=== PATIENT | female | born 1985 | race Caucasian/White ===

== ENCOUNTER 2018-02-14 09:20 | Emergency (ER) | payer BC, OTHER ==
[2018-02-14 09:28] VITALS: BP 103/70; PULSE 88; TEMP 98.3; BMI 21.6
[2018-02-14] MEDS ORDERED: SODIUM CHLORIDE 1,000 ML IV STA ×2 (09:39→09:40)
[2018-02-14 09:49] LABS: PH,URINE 6.5 (4.5-8); URINE APPEARANCE Slightly; URINE BILIRUBIN Negative (NEGATIVE); URINE COLOR Amber; URINE GLUCOSE (UA) Negative (NEGATIVE); URINE KETONE Trace (NEGATIVE); URINE LEUK ESTERASE 1+ (NEGATIVE); URINE NITRITE Negative (NEGATIVE); URINE PROTEIN Negative (NEGATIVE); URINE UROBILINOGEN 0.2 (0.2-1.0)
--- NOTE | 2018-02-14 09:52 | PDOC ---
History of Present Illness - General Chief Complaint: Lightheaded Stated Complaint: 9 wks , DIZZY Time Seen by Provider: 02/14/18 09:23 History Source: Patient Exam Limitations: No Limitations - History of Present Illness Initial Comments: 02/14/18 09:46 32 yo female (currently 9 weeks ) presents to the ED for 3 days of intermittent light headedness, generalized weakness and palpitations. Pt called her OB (Dr. Garcia) who would like her seen, have an ekg and have her oxygenation status checked due to the symptoms. Pt admits to giving at 36 weeks last and will be followed by high lead yarder. Pt states symptoms occur mainly while ambulating and only last 1 min, 1 episode Sat and 1 . Pt taking diclegis for morning sickness, denies N/V. Also admits to low grade fever 3 days ago, denies any current symptoms, fevers, chills, Cp, SOB, vaginal bleeding or spotting, abdominal pain or changes in urinary or bowel habits. Past History - Past Medical History Allergies/Adverse Reactions: Allergies Allergy/AdvReac Type Severity Reaction Status Date / Time No Known Allergies Allergy Verified 02/14/18 09:23 Home Medications: Ambulatory Orders Cephalexin [Keflex] 500 mg PO BID 7 Days #14 capsule 02/14/18 Doxylamine Succinate/Vit B6 [Diclegis Dr 10-10 mg Tablet] 1 each PO HS PRN 02/14 COPD: No Other medical history: MORNING SICKNESS - Suicide/Smoking/Psychosocial Hx Smoking History: Never smoked Have you smoked in the past 12 months: No Number of Cigarettes Smoked Daily: 0 Information on smoking cessation initiated: No Hx Alcohol Use: No Substance Use Type: None Review of Systems - Review of Systems Constitutional: No: Chills, Fever (present 3 day ago, low grade) Respiratory: No: Shortness of Breath Cardiac (ROS): Yes: Lightheadedness, Palpitations. No: Chest Pain, Syncope ABD/GI: No: Constipated, Diarrhea, Nausea, Vomiting : Yes: Other (no vaginal bleeding). No: Burning, Dysuria, Discharge, Hematuria Musculoskeletal: No: Back Pain Neurological: Yes: Weakness (generalized) *Physical Exam - Vital Signs Last Vital Signs Temp Pulse Resp BP Pulse Ox 98.3 F 88 16 103/70 100 02/14/18 09:20 02/14/18 09:20 02/14/18 09:20 02/14/18 09:20 02/14/18 09:20 - Physical Exam General Appearance: Yes: Nourished, Appropriately Dressed. No: Apparent Distress HEENT: positive: EOMI Respiratory/Chest: positive: Lungs Clear, Normal Breath Sounds Cardiovascular: positive: Regular Rhythm, Regular Rate, S1, S2. negative: Edema , JVD, Murmur Vascular Pulses: Dorsalis-Pedis (R): 4+, Doralis-Pedis (L): 4+ Female Pelvic Exam: positive: other (denies discharge or bleeding) Gastrointestinal/Abdominal: positive: Normal Bowel Sounds, Flat, Soft, Tenderness (minor tenderness to R and L LQ). negative: Pulsatile Mass, Protuberent, Guarding, Rebound Musculoskeletal: negative: CVA Tenderness Extremity: positive: Normal Capillary Refill Integumentary: positive: Normal Color, Dry, Warm. negative: Cyanotic, Pale Neurologic: positive: Fully Oriented, Alert, Normal Mood/Affect ED Treatment Course - LABORATORY CBC & Chemistry Diagram: 02/14/18 09:58 02/14/18 09:58 Medical Decision Making - Medical Decision Making 02/14/18 11:03 32 yo 9 week female pmh of UTI presents with lightheadedness and low grade fever 3 days ago. Past UTI presented similarly. Vitals normal including 100% O2 Blood work neg for anemia, infection or electrolyte abnormality UTI on urine. Urine Culture sent 500mg BID Cephalexin sent to pharmacy Patient resting comfortably, got 2L fluids and no current symptoms or complaints. Will discharge with follow up with PCP 02/14/18 11:[address] Garcia's nurse who is aware of the findings and set an appointment for next at 5pm *DC/Admit/Observation/Transfer Diagnosis at time of Disposition: UTI (urinary tract infection) Qualifiers: Urinary tract infection type: site unspecified Hematuria presence: without hematuria Qualified Code(s): N39.0 - Urinary tract infection, site not specified - Discharge Dispostion Condition at time of disposition: Stable Decision to Admit order: No - Prescriptions Prescriptions: Cephalexin [Keflex] 500 mg PO BID 7 Days #14 capsule - Referrals Referrals: Luana Garcia [Other] - Patient Instructions Printed Discharge Instructions: DI for Urinary Tract Infection (UTI) Additional Instructions: Please follow up with your appointment next at 5pm with your OB Dr. Garcia A Urinary Tract Infection was found and Cephalexin 500mg 2 times a day by mouth was sent to your pharmacy. Please return to the Emergency Department for new or worsening symptoms including but not limited to: blood in the urine, excessive abdominal or back pain, high fevers or feels of passing out, Thank you. - Post Discharge Activity
--- NOTE | 2018-02-14 09:59 | PDOC ---
Attending Attestation - Resident Resident Name: Wolf Dong - ED Attending Attestation I have performed the following: I have examined & evaluated the patient, The case was reviewed & discussed with the resident, I agree w/resident's findings & plan, Exceptions are as noted - HPI HPI: 02/14/18 10:05 32 year old female c/ no pmh p/w lightheadedness x 3 days. The patient is 9 weeks . She reportedly has hx of hyperemesis gravidarum. Is currently taking medications for nausea. Reports overall that her appetite is decreased but still trying to tolerate PO. No fevers, chills, abdominal pain, dysuria, or vaginal bleeding. Pt feels lightheaded on standing up or sitting up quickly. When exerting herself, she feels palpitations but denies chest pain or SOB. Pt called her SOFTWARE INTEGRATION DEVELOPER who advised pt to go to the ER. - Physicial Exam PE: 02/14/18 10:08 GENERAL: Awake, alert, and fully oriented, in no acute distress HEAD: No signs of trauma EYES: EOMI, sclera anicteric, conjunctiva clear ENT: Auricles normal inspection, hearing grossly normal, nares patent, dry mucous membranes. NECK: Normal ROM, supple LUNGS: Breath sounds equal, clear to auscultation bilaterally. No wheezes, and no crackles HEART: Regular rate and rhythm, normal S1 and S2, no murmurs, rubs or gallops ABDOMEN: Soft, nontender. No guarding, no rebound. No masses EXTREMITIES: Normal range of motion, no edema. No clubbing or cyanosis. No cords, erythema, or tenderness NEUROLOGICAL: Cranial nerves II through XII grossly intact. Normal speech, normal gait SKIN: Warm, Dry, normal turgor, no rashes or lesions noted. - Medical Decision Making 02/14/18 10:09 Vital Signs Temp Pulse Resp BP Pulse Ox 98.3 F 88 16 103/70 100 02/14/18 09:20 02/14/18 09:20 02/14/18 09:20 02/14/18 09:20 02/14/18 09:20 I suspect that the patient's symptoms are secondary to dehydration, and less likely from other etiologies i.e. cardiac, metabolic, infectious. ECG is normal and reassuring. Will check labs for metabolic disarray. UA to r/o infection. Give IVF and reassess. 02/14/18 10:46 CBC, BMP 02/14/18 09:58 10 09:58 BMI Body Mass Index (BMI) 21.6 CMP Sodium 134 mmol/L (136-145) L 02/14/18 09:58 Potassium 4.0 mmol/L (3.5-5.1) 02/14/18 09:58 Chloride 105 mmol/L (98-107) 02/14/18 09:58 Carbon Dioxide 24 mmol/L (22-28) 02/14/18 09:58 Anion Gap 5 MMOL/L (8-16) L 02/14/18 09:58 BUN 7 mg/dl (7-18) 02/14/18 09:58 Creatinine 0.6 mg/dl (0.6-1.3) 02/14/18 09:58 Creat Clearance w eGFR > 60 (>60) 02/14/18 09:58 Random Glucose 75 mg/dl (74-106) 02/14/18 09:58 Calcium 9.1 mg/dl (8.4-10.2) 02/14/18 09:58 Magnesium 1.8 mg/dL (1.8-2.4) 02/14/18 09:58 Total Bilirubin 0.5 mg/dl (0.2-1.0) 02/14/18 09:58 AST 18 U/L (10-42) 02/14/18 09:58 ALT 15 U/L (10-40) 02/14/18 09:58 Alkaline Phosphatase 51 U/L (32-92) 02/14/18 09:58 Creatine Kinase 60 IU/L (26-192) 02/14/18 09:58 Total Protein 6.7 g/dl (6.4-8.3) 02/14/18 09:58 Albumin 3.8 g/dl (3.5-5.0) 02/14/18 09:58 Urine Test Results Urine Color [place] 02/14/18 09:41 Urine Appearance Slightly 02/14/18 09:41 Urine pH 6.5 (4.5-8) 02/14/18 09:41 Ur Specific Ledger 1.025 (1.010-1.035) 02/14/18 09:41 Urine Protein Negative (NEGATIVE) 02/14/18 09:41 Urine Glucose (UA) Negative (NEGATIVE) 02/14/18 09:41 Urine Ketones Trace (NEGATIVE) 02/14/18 09:41 Urine Blood Trace-intact (NEGATIVE) H 02/14/18 09:41 Urine Nitrite Negative (NEGATIVE) 02/14/18 09:41 Urine Bilirubin Negative (NEGATIVE) 02/14/18 09:41 Ur Leukocyte Esterase 1+ (NEGATIVE) H 02/14/18 09:41 Urine RBC 5-10 /hpf (0-3) 02/14/18 09:41 Urine WBC 20-40 (0-5) 02/14/18 09:41 Ur Epithelial Cells 4+ /HPF 02/14/18 09:41 Urine Bacteria 4+ /hpf (NEGATIVE) 02/14/18 09:41 Labs are unremarkable. However, pt noted with 20-40 WBC in the urine. Given that she is , will treat with keflex. Urine culture ordered. 2nd liter of IVF ordered. I suspect that the combination of poor appetite and UTI is contributing to her dehydration. If the trop is negative, and the patient feels better, she can be discharged home with ob followup. Heart Score/ECG Review #1 ECG reviewed & interpreted by me at: 10:00 02/14/18 09:58 NSR 69, no std/krystal, normal axis, normal intervals, no brugada, no HOCM, no WPW, QTC 394 msec
[2018-02-14 10:10] LABS: EPI CELLS 4+ /HPF; URINE BACTERIA 4+ /hpf (NEGATIVE); URINE WBC 20-40 (0-5)
[2018-02-14 10:16] LABS: EOS % 0.5 % (0-4.5); HEMATOCRIT 36.6 % (32.4-45.2); HEMOGLOBIN 12.1 GM/dl (10.7-15.3); LYMPH % 20.2 % (8-40); MCH 30.9 pg (25.7-33.7); MEAN CELL VOLUME 93.5 fl (80-96); MONO % 6.4 % (3.8-10.2); NEUT % 72.6 % (42.8-82.8); PLATELET COUNT 212 K/MM3 (134-434); RBC 3.92 M/mm3 (3.60-5.2); RDW 11.5 % (11.6-15.6); WHITE BLOOD COUNT 8.9 K/mm3 (4.0-10.8)
[2018-02-14 10:33] LABS: ALBUMIN 3.8 g/dl (3.5-5.0); ALK PHOS 51 U/L (32-92); ANION GAP 5 MMOL/L (8-16); BILIRUBIN,TOTAL 0.5 mg/dl (0.2-1.0); BLOOD UREA NITROGEN 7 mg/dl (7-18); CALCIUM 9.1 mg/dl (8.4-10.2); CHLORIDE 105 mmol/L (98-107); CO2 24 mmol/L (22-28); CREATININE 0.6 mg/dl (0.6-1.3); GLUCOSE,RANDOM 75 mg/dl (74-106); MAGNESIUM 1.8 mg/dL (1.8-2.4); SGOT/AST 18 U/L (10-42); SGPT/ALT 15 U/L (10-40); SODIUM 134 mmol/L (136-145); TOT PROT 6.7 g/dl (6.4-8.3)
[2018-02-14] MEDS ORDERED: CEPHALEXIN 250 MG/5 ML ORAL SUSPENSION PO ONE (10:51)
[2018-02-14] MEDS ORDERED: CEPHALEXIN MONOHYDRATE 500 MG CAPSULE (UD) ONE (11:32)
[2018-02-14] MEDS ORDERED: CEPHALEXIN MONOHYDRATE 500 MG CAPSULE (UD) PO ONE (11:37)
--- NOTE | 2018-02-15 10:33 | EKG ---
Test Reason : Blood Pressure : / mmHG Vent. Rate : 069 BPM Atrial Rate : 069 BPM P-R Int : 142 ms QRS Dur : 074 ms QT Int : 368 ms P-R-T Axes : 054 086 055 degrees QTc Int : 394 ms NORMAL SINUS RHYTHM NORMAL ECG NO PREVIOUS ECGS AVAILABLE Confirmed by CELINE MCKEON MD ([id number]) on 02/15/2018 10:33:18 AM Referred By: ARIANNE DEXTER Confirmed By:CELINE MCKEON MD
== END 2018-02-14 12:03 | disposition home or self-care (01) ==
LOC: FER 09:20
PROC: 3E0337Z Introduction of Electrolytic and Water Balance Substance into Peripheral Vein, Percutaneous Approach (ICD-10-PCS; principal; 2018-02-14)
DX: R42 Dizziness and giddiness (principal); O26.891 Other specified pregnancy related conditions, first trimester; Z3A.09 9 weeks gestation of pregnancy; N39.0 Urinary tract infection, site not specified
CPT/HCPCS: 36415; 80053; 81003; 81015; 82550; 83735; 84484; 85025; 87086; 93005; 99285-25; J7030

== ENCOUNTER 2018-11-07 08:21 | Inpatient (IN) | payer OTHER ==
--- NOTE | 2018-11-07 08:25 | PDOC ---
History of Present Illness - General Chief Complaint: Weakness Stated Complaint: FEVER WEAKNESS Time Seen by Provider: 11/07/18 08:23 - History of Present Illness Initial Comments: 11/07/18 08:42 33yo female with no pmhx other than a spontaneous vaginal delivery 7 weeks ago at [facility] presents to the ED with a fever of 2 days. Pt states she was being treated last week with flagyl for BV and then switched on saturday to dicloxacillin. Pt has been taking the dicloxacillin x 2 days and still persistent fevers. Pt states she was switched because of mastitis of the R breast. No discharge other than breast milk from the R breast, but redness and pain. Pt states she pumped this am and only 1/2 an ounce was able to be pumped vs 3ounces to L breast. Pt with R lateral breast redness and ttp. Pt with palpable induration and poss abscess in the breast. Pt arrives febrile. Pt took tylenol around 7am. Pt took motrin at 4am. Pt had an appt with her BUSINESS DEVELOPMENT PROFESSIONAL today, but was feeling weak and dizzy. Pt states decreased po intake yesterday secondary to nausea. No vomiting or diarrhea. Pt denies vaginal bleeding, discharge, itching or pain. Pt denies abd pain. No cp/sob. No cough. Pt states she had an IUD placed last by her ARC AIR OPERATOR. Pmhx: denies Pshx: denies Allergies: nkda Past History - Past Medical History Allergies/Adverse Reactions: Allergies Allergy/AdvReac Type Severity Reaction Status Date / Time No Known Allergies Allergy Verified 11/07/18 08:23 Home Medications: Ambulatory Orders Acetaminophen [Tylenol] 650 mg PO PRN 11/07/18 Dicloxacillin Sodium 500 mg PO QID 11/07/18 Ibuprofen [Motrin -] 400 mg PO PRN 11/07/18 COPD: No - Reproductive History (#): 2 Para: 1 Therapeutic (s) & number: No - Suicide/Smoking/Psychosocial Hx Smoking History: Never smoked Have you smoked in the past 12 months: No Number of Cigarettes Smoked Daily: 0 Hx Alcohol Use: No Substance Use Type: None Review of Systems - Review of Systems Able to Perform ROS?: Yes Is the patient limited Occitan proficient: No Constitutional: Yes: Fever, Weakness. No: Chills HEENTM: No: Nose Pain, Nose Congestion, Throat Pain Respiratory: No: Cough, Shortness of Breath, Wheezing, Productive cough Cardiac (ROS): No: Chest Pain ABD/GI: Yes: Nausea, Poor Appetite. No: Diarrhea, Vomiting, Abdominal cramping : No: Burning, Dysuria Musculoskeletal: No: Back Pain Integumentary: Yes: Erythema, Other (R breast swelling, redness, pain) Neurological: Yes: Headache. No: Numbness, Paresthesia, Unsteady Gait, Ataxia All Other Systems: Reviewed and Negative *Physical Exam - Vital Signs 11/07/18 08:54 Selected Entries 11/07/18 08:22 Temperature 101.4 F H Pulse Rate 96 H Respiratory 18 Rate Respiratory Non-Labored Effort Blood Pressure 114/74 Blood Pressure 87 Mean O2 Sat by Pulse 96 Oximetry (%) Weight 55.338 kg - Physical Exam General Appearance: Yes: Nourished, Appropriately Dressed, Mild Distress HEENT: positive: EOMI, GABRIELE, Normal ENT Inspection, Pharynx Normal Neck: positive: Supple Respiratory/Chest: positive: Lungs Clear, Normal Breath Sounds, Other (R breast with lateral redness, swelling, induration and palpable mass underneath, poss abscess). negative: Respiratory Distress Cardiovascular: positive: Regular Rhythm, Regular Rate, S1, S2 Female Pelvic Exam: positive: normal external exam, cervical os closed, normal adnexa, other (IUD string visualized, no adnexal, cmt, or uterine ttp). negative: CMT, discharge, adnexal tenderness, vaginal bleeding Gastrointestinal/Abdominal: positive: Normal Bowel Sounds, Flat, Soft. negative : Guarding, Rebound, Tenderness Musculoskeletal: positive: Normal Inspection. negative: CVA Tenderness Extremity: positive: Normal Capillary Refill, Normal Inspection, Normal Range of Motion. negative: Calf Tenderness Integumentary: positive: Erythema (R lateral breast ), Other (hot to tough) Neurologic: positive: specialist physicians II-XII NML intact, Fully Oriented, Alert, Motor Strength 5/5 ED Treatment Course - LABORATORY CBC & Chemistry Diagram: 11/07/18 09:08 11/07/18 09:08 Medical Decision Making - Medical Decision Making 11/07/18 08:59 a/p: 33yo female with fever x 2 days -suspect worsening mastitis that failed outpt therapy -pt is breast feeding, has been pumping -pt was on flagyl for a week and then changed to dicloxacillin -will send labs, cultures -will order ultrasound of breast to eval for poss breast abscess -only milk production from nipple, breast is ttp -will start iv abx -will give ivf hydration, nausea control, toradol for fever 11/07/18 09:39 cxr clear 11/07/18 10:41 no breast abscess 11/07/18 10:56 pt with mastitis that failed outpt abx microblog sent to [facility] 11/07/18 11:[address] Trinh or Dr. Chris at the [place] [facility] to update them and discuss the case [phone] 11/07/18 11:[address] Medina who agrees with plan and recommends follow up with them upon dc from the hospital 11/07/18 11:29 case discussed with Rashmi Ludwig who accepts pt to service *DC/Admit/Observation/Transfer Diagnosis at time of Disposition: Mastitis - Discharge Dispostion Condition at time of disposition: Fair Decision to Admit order: Yes - Referrals Referrals: Karan German MD [Primary Care Provider] - - Patient Instructions - Post Discharge Activity
[2018-11-07] MEDS ORDERED: FAMOTIDINE 20 MG/50 ML IVPB 20 MG/50 ML MG IVPB ONE ×2 (08:39→09:23)
[2018-11-07] MEDS ORDERED: KETOROLAC TROMETHAMINE 15 MG/ML VIAL IVPUSH ONE (08:39)
[2018-11-07] MEDS ORDERED: SODIUM CHLORIDE 0.9% 1000 ML INFUS.BAG IV ONE ×2 (08:39→10:17)
[2018-11-07] MEDS ORDERED: ONDANSETRON 4 MG/2 ML VIAL IVPUSH ONE (08:39)
[2018-11-07] MEDS ORDERED: ONDANSETRON 4 MG/2 ML VIAL ONE (09:23)
[2018-11-07] MEDS ORDERED: KETOROLAC TROMETHAMINE 15 MG/ML VIAL ONE (09:23)
[2018-11-07 09:33] LABS: BASO % 0.2 % (0-2.0); EOS % 0.1 % (0-4.5); HEMATOCRIT 38.5 % (32.4-45.2); HEMOGLOBIN 12.4 GM/dl (10.7-15.3); LYMPH % 11.7 % (8-40); MCHC 32.2 g/dl (32.0-36.0); MEAN CELL VOLUME 86.8 fl (80-96); MEAN PLT VOLUME 9.1 fl (7.5-11.1); MONO % 8.1 % (3.8-10.2); NEUT % 79.9 % (42.8-82.8); PLATELET COUNT 269 K/MM3 (134-434); RBC 4.43 M/mm3 (3.60-5.2); WHITE BLOOD COUNT 9.7 K/mm3 (4.0-10.8)
[2018-11-07 09:39] LABS: ALBUMIN 3.8 g/dl (3.4-5.0); BILIRUBIN,TOTAL 0.4 mg/dl (0.2-1); CALCIUM 8.9 mg/dl (8.5-10); CREATININE 0.9 mg/dl (0.55-1.3); POTASSIUM 3.7 mmol/L (3.5-5.1); TOT PROT 7.3 g/dl (6.4-8.2)
[2018-11-07] MEDS ORDERED: VANCOMYCIN 1 GM in D5W (PRE-DOCKED) 1,000 MG/250 ML IVPB ONE (09:50)
[2018-11-07] MEDS ORDERED: VANCOMYCIN 1,000 MG VIAL (RESTRICTED TO ID ONLY) ONE (09:57)
[2018-11-07 10:14] LABS: EPITHELIAL CELLS FEW /hpf
--- NOTE | 2018-11-07 11:14 | HP ---
CHIEF COMPLAINT: Right breast pain, swelling, fever OB: Gayathri/Rogers/Carol, [facility] [phone] HISTORY OF PRESENT ILLNESS: 33 year-old female, , with a PMH significant for IBS, hyperemesis gravidum, and who had a spontaneous vaginal delivery 7 weeks ago. Patient has been . Three weeks ago she developed an area of redness and pain in her right breast. She massaged the area, used a warm pack, and the symptoms resolved. Last week patient was prescribed flagyl for bacterial vaginosis. Two days ago she again developed redness, warmth, and pain in the right breast. Flagyl was stopped and she was started on dicloxacillin by her OB. She has had persistent fever and shaking chills. She has had little to no PO intake for 24 hours due to nausea. She has been able to express only a minimal amount of milk from the right breast, 1/2 ounce v. 3 ounces from the left breast. There has been no nipple exudate or discharge other than milk. Patient denies vaginal bleeding, discharge, itching or pain. Denies abdominal pain, chest pain, SOB. She had an IUD placed last by her LOOP DRIER OPERATOR. ER course was notable for: (1) T101.4, p 96 (2) Zofran x 1; Vanc 1g x 1; NS x 2L Recent Travel: No PAST MEDICAL HISTORY: Irritable bowel syndrome Hyperemesis gravidum PAST SURGICAL HISTORY: None reported Social History: Smoking: never Alcohol: no Drugs: no Family History: Allergies No Known Allergies Allergy (Verified 11/07/18 08:23) HOME MEDICATIONS: Home Medications Medication Instructions Recorded Acetaminophen [Tylenol] 650 mg PO PRN 11/07/18 Dicloxacillin Sodium 500 mg PO QID 11/07/18 Ibuprofen [Motrin -] 400 mg PO PRN 11/07/18 REVIEW OF SYSTEMS CONSTITUTIONAL: +fever, chills, malaise, loss of appetite Absent: diaphoresis, generalized weakness, weight change HEENT: Absent: rhinorrhea, nasal congestion, throat pain, throat swelling, difficulty swallowing, mouth swelling, ear pain, eye pain, visual changes CARDIOVASCULAR: Absent: chest pain, syncope, palpitations, irregular heart rate, lightheadedness , peripheral edema RESPIRATORY: Absent: cough, shortness of breath, dyspnea with exertion, orthopnea, wheezing, stridor, hemoptysis GASTROINTESTINAL: Absent: abdominal pain, abdominal distension, nausea, vomiting, diarrhea, constipation, melena, hematochezia GENITOURINARY: Absent: dysuria, frequency, urgency, hesitancy, hematuria, flank pain, genital pain MUSCULOSKELETAL: Absent: myalgia, arthralgia, joint swelling, back pain, neck pain SKIN: Absent: rash, itching, pallor HEMATOLOGIC/IMMUNOLOGIC: Absent: easy bleeding, easy bruising, lymphadenopathy, frequent infections ENDOCRINE: Absent: unexplained weight gain, unexplained weight loss, heat intolerance, cold intolerance NEUROLOGIC: Absent: headache, focal weakness or paresthesias, dizziness, unsteady gait, seizure, mental status changes, bladder or bowel incontinence PSYCHIATRIC: Absent: anxiety, depression, suicidal or homicidal ideation, hallucinations. PHYSICAL EXAMINATION Vital Signs - 24 hr 11/07/18 11/07/18 08:22 10:16 Temperature 101.4 F H 100.5 F H Pulse Rate 96 H Pulse Rate [ 97 H Right] Respiratory 18 17 Rate Blood Pressure 114/74 Blood Pressure 102/58 L [Left Arm] O2 Sat by Pulse 96 96 Oximetry (%) GENERAL: Awake, alert, and fully oriented, in moderate distress. Ill-appearing. Shaking chills. LUNGS: Breath sounds equal, clear to auscultation bilaterally. No wheezes, and no crackles. No accessory muscle use. HEART: Regular rate and rhythm, S1 and S2 RIGHT BREAST: erythema, warm to touch, tender, firm ABDOMEN: Soft, nontender, not distended MUSCULOSKELETAL: Normal range of motion at all joints. No bony deformities or tenderness. No CVA tenderness. UPPER EXTREMITIES: 2+ pulses, warm, well-perfused. No cyanosis. No clubbing. No peripheral edema. LOWER EXTREMITIES: 2+ pulses, warm, well-perfused. No calf tenderness. No peripheral edema. NEUROLOGICAL: Cranial nerves II-XII intact. Normal speech. Laboratory Results - last 24 hr 11/07/18 11/07/18 11/07/18 09:08 09:08 09:08 WBC 9.7 RBC 4.43 Hgb 12.4 Hct 38.5 MCV 86.8 MCH 28.0 MCHC 32.2 RDW 15.0 D Plt Count 269 MPV 9.1 Absolute Neuts (auto) 7.8 Neutrophils % 79.9 Lymphocytes % 11.7 Monocytes % 8.1 Eosinophils % 0.1 Basophils % 0.2 Sodium 137 Potassium 3.7 Chloride 103 Carbon Dioxide 24 Anion Gap 10 BUN 6.0 L Creatinine 0.9 Est GFR (CKD-EPI)AfAm 98.75 Est GFR (CKD-EPI)NonAf 85.20 Random Glucose 101 Lactic Acid Calcium 8.9 Total Bilirubin 0.4 AST 22 ALT 33 Alkaline Phosphatase 76 Total Protein 7.3 Albumin 3.8 Serum , Qual Negative Urine Color Urine Appearance Urine pH Urine Protein Urine Glucose (UA) Urine Ketones Urine Blood Urine Nitrite Urine Bilirubin Urine Urobilinogen Ur Leukocyte Esterase Urine RBC Ur Transition Epith Cell 11/07/18 11/07/18 09:09 09:39 WBC RBC Hgb Hct MCV MCH MCHC RDW Plt Count MPV Absolute Neuts (auto) Neutrophils % Lymphocytes % Monocytes % Eosinophils % Basophils % Sodium Potassium Chloride Carbon Dioxide Anion Gap BUN Creatinine Est GFR (CKD-EPI)AfAm Est GFR (CKD-EPI)NonAf Random Glucose Lactic Acid 0.2 L Calcium Total Bilirubin AST ALT Alkaline Phosphatase Total Protein Albumin Serum , Qual Urine Color Yellow Urine Appearance Clear Urine pH 6.5 Urine Protein Negative Urine Glucose (UA) Negative Urine Ketones 1+ H Urine Blood Trace-intact Urine Nitrite Negative Urine Bilirubin Negative Urine Urobilinogen 0.2 Ur Leukocyte Esterase Negative Urine RBC 0-2 Ur Transition Epith Cell Few ASSESSMENT/PLAN Sepsis secondary to severe mastitis --on admission T101.4, p 96, mastitis source of infection --failed outpatient PO antibiotic therapy with dicloxacillin --US negative for abscess or fluid collection, subcm cyst --in ED given Vanc x 1 dose and 2L NS --give 3rd liter now, then hourly IV fluids --breast milk culture ordered --Vanc 1g BID --ID consult placed, added Zosyn --Motrin for fever, pain; Zofran PRN --cold compresses --breast pump to completely empty breast ; patient has consulted with her dipping machine operator, will pump and save milk FEN Fluids: NS @ 100mL/hr Electrolytes: replete as indicated Nutrition: regular diet; vitamins DVT prophylaxis: subq heparin Dispo: continues to require inpatient care. Full code. Visit type - Emergency Visit Emergency Visit: Yes ED Registration Date: 11/07/18 Care time: The patient presented to the Emergency Department on the above date and was hospitalized for further evaluation of their emergent condition. - New Patient This patient is new to me today: Yes Date on this admission: 11/07/18 - Critical Care Critical Care patient: No
[2018-11-07] MEDS ORDERED: IBUPROFEN 600 MG TABLET (FP) PO PRN (14:49)
[2018-11-07] MEDS ORDERED: ONDANSETRON *ODT* 4 MG TABLET SL PRN (14:53)
[2018-11-07] MEDS ORDERED: PT OWN MED DRAWER 7, Y5N ONE (14:55)
[2018-11-07] MEDS ORDERED: SODIUM CHLORIDE 1,000 ML IV STA (15:09)
[2018-11-07] MEDS ORDERED: ONDANSETRON 4 MG/2 ML VIAL IVPUSH PRN (15:09)
[2018-11-07] MEDS: PRENATAL VITAMINS W/ FOLIC ACID TABLET (FP) PO SCH (15:13)
[2018-11-07] MEDS: SODIUM CHLORIDE 1,000 ML IV SCH (15:14)
[2018-11-07] MEDS: IBUPROFEN 800 MG/8 ML IJ IVPB SCH (15:19)
[2018-11-07 15:37] VITALS: BMI 21.9
--- NOTE | 2018-11-07 17:17 | CON.ID ---
Consult Consult Specialty:: infectious diseases Referred by:: Rashmi Reason for Consultation:: sepsis.mastitis,fever - History of Present Illness Chief Complaint: fever,pain breast History of Present Illness: 33yo female with no pmhx spontaneous vaginal delivery 7 weeks ago at [facility] presents admitted for fever for last couple of days .patient was initially started on flagyl for bacterial vaginosis and still continued to ahve fever and then on saturday was switched to dicloxacillin which she has taken for couple of days without improvement and patient still spiking fevers according to history it was though that the patient has mastitis of the breast patient had a iud placed last patient very tender in t left breast and still spiking this is her second baby - History Source History Provided By: Patient Limitations to Obtaining History: No Limitations - Past Medical History ...LMP: 12/14/17 - Alcohol/Substance Use Hx Alcohol Use: Yes (social) - Smoking History Smoking history: Never smoked Have you smoked in the past 12 months: No Aproximately how many cigarettes per day: 0 Home Medications - Allergies Allergies/Adverse Reactions: Allergies Allergy/AdvReac Type Severity Reaction Status Date / Time No Known Allergies Allergy Verified 11/07/18 08:23 - Home Medications Home Medications: Ambulatory Orders Acetaminophen [Tylenol] 650 mg PO PRN 11/07/18 Dicloxacillin Sodium 500 mg PO QID 11/07/18 Ibuprofen [Motrin -] 400 mg PO PRN 11/07/18 Review of Systems - Review of Systems Constitutional: reports: Fever Eyes: reports: No Symptoms HENT: reports: No Symptoms Neck: reports: No Symptoms Cardiovascular: reports: No Symptoms Respiratory: reports: No Symptoms Gastrointestinal: reports: No Symptoms Breasts: reports: See HPI, Discharge from Nipple (milk) Musculoskeletal: reports: No Symptoms Integumentary: reports: No Symptoms Neurological: reports: No Symptoms Endocrine: reports: No Symptoms Hematology/Lymphatic: reports: No Symptoms Psychiatric: reports: No Symptoms Physical Exam Vital Signs: Vital Signs Temperature 99.7 F H 11/07/18 15:22 Pulse Rate 96 H 11/07/18 15:22 Respiratory Rate 16 11/07/18 15:22 Blood Pressure 112/62 11/07/18 15:22 O2 Sat by Pulse Oximetry (%) 98 11/07/18 13:05 Constitutional: Yes: Well Nourished, Calm, Mild Distress Eyes: Yes: Conjunctiva Clear HENT: Yes: Atraumatic, Normocephalic Neck: Yes: Supple, Trachea Midline Cardiovascular: Yes: Regular Rate and Rhythm Respiratory: Yes: Regular, CTA Bilaterally Gastrointestinal: Yes: Normal Bowel Sounds, Soft Breast(s): Yes: Right (erythema,tender) Musculoskeletal: Yes: WNL Extremities: Yes: WNL Neurological: Yes: Alert, Oriented Psychiatric: Yes: Alert, Oriented Labs: CBC, BMP 11/07/18 09:08 11/07/18 09:08 Imaging - Results Chest X-ray: Report Reviewed, Image Reviewed Ultrasound: Report Reviewed, Image Reviewed Assessment/Plan Sepsis secondary to severe mastitis patient has spiked fever through vanco plan i am going to add zosyregan gunnescalte once patient is stable
[2018-11-07] MEDS ORDERED: DEXTROSE 5%-WATER - 50 ML IVPB ONE (17:38)
[2018-11-07] MEDS ORDERED: PIPERACILLIN/TAZOBACTAM 3.375 GM VIAL IVPB ONE (17:38)
[2018-11-07] MEDS: PIPERACILLIN/TAZOB 3.375 GM 3.375 GM in DEXTROSE 5%-WATER - 50 ML IVPB SCH (17:47)
[2018-11-07] MEDS ORDERED: VANCOMYCIN 1 GRAM (PRE-DOCKED) 1,000 MG/250 ML BAG IVPB SCH (22:00)
[2018-11-08] MEDS ORDERED: PIPERACILLIN/TAZOBACTAM 3.375 GM VIAL IVPB ONE ×3 (01:23→16:55)
[2018-11-08] MEDS ORDERED: DEXTROSE 5%-WATER - 50 ML IVPB ONE ×3 (01:24→16:55)
[2018-11-08] MEDS: IBUPROFEN 800 MG/8 ML IJ IVPB SCH ×4 (01:52→23:53)
[2018-11-08] MEDS: PIPERACILLIN/TAZOB 3.375 GM 3.375 GM in DEXTROSE 5%-WATER - 50 ML IVPB SCH ×3 (03:15→17:13)
[2018-11-08] MEDS: ENOXAPARIN NA (PORCINE) 40 MG/0.4 ML DISP.SYRIN SQ SCH (09:26)
[2018-11-08] MEDS ORDERED: PT OWN MED DRAWER 7, Y5N ONE ×2 (09:32→13:33)
[2018-11-08] MEDS ORDERED: REFRIGERATED ANITBIOTICS ONE (09:32)
[2018-11-08] MEDS: VANCOMYCIN HCL 1,250 MG in DEXTROSE 5%-WATER - 250 ML IVPB SCH (09:34)
[2018-11-08] MEDS: PRENATAL VITAMINS W/ FOLIC ACID TABLET (FP) PO SCH (09:34)
--- NOTE | 2018-11-08 09:36 | PN ---
Progress Note, Physician Chief Complaint: C/O Breast pain History of Present Illness: 33 year-old female, , with a PMH significant for IBS, hyperemesis gravidum, and who had a spontaneous vaginal delivery 7 weeks ago. Patient has been . Three weeks ago she developed an area of redness and pain in her right breast. She massaged the area, used a warm pack, and the symptoms resolved. Last week patient was prescribed flagyl for bacterial vaginosis. Two days ago she again developed redness, warmth, and pain in the right breast. Flagyl was stopped and she was started on dicloxacillin by her OB. She has had persistent fever and shaking chills, TWBC normal, ultrasound Breast shows no collection - Current Medication List Current Medications: Active Medications Enoxaparin Sodium (Lovenox -) 40 mg SQ DAILY [facility] Last Admin: 11/08/18 09:26 Dose: 40 mg Sodium Chloride (Normal Saline -) 1,000 mls @ 100 mls/hr IV ASDIR PAULO Last Admin: 11/07/18 15:14 Dose: 100 mls/hr Vancomycin HCl 1,250 mg/ (Dextrose) 250 mls @ 250 mls/2 hr IVPB Q24H PAUL[facility]; Protocol Piperacillin Sod/Tazobactam (Sod 3.375 gm/ Dextrose) 50 mls @ 100 mls/hr IVPB Q8H-IV [facility]; Protocol Last Admin: 11/08/18 09:27 Dose: 100 mls/hr Ibuprofen (Caldolor Injection -) 800 mg IVPB Q8H [facility] Stop: 11/09/18 07:16 Last Admin: 11/08/18 08:45 Dose: 800 mg Ondansetron HCl (Zofran Injection) 4 mg IVPUSH Q6H PRN PRN Reason: NAUSEA AND/OR VOMITING Last Admin: 11/07/18 15:19 Dose: 4 mg Multivit/Folic Acid/Iron ( Vitamins (Sjr) -) 1 tab PO DAILY [facility] Last Admin: 11/07/18 15:13 Dose: 1 tab - Objective Vital Signs: Vital Signs Temperature 97.9 F 11/08/18 06:00 Pulse Rate 69 11/08/18 06:00 Respiratory Rate 16 11/08/18 08:14 Blood Pressure 109/57 L 11/08/18 06:00 O2 Sat by Pulse Oximetry (%) 99 11/08/18 08:14 Constitutional: Yes: Well Nourished, No Distress, Calm Eyes: Yes: Conjunctiva Clear, EOM Intact HENT: Yes: Atraumatic, Normocephalic Neck: Yes: Supple, Trachea Midline Cardiovascular: Yes: Regular Rate and Rhythm, S1, S2 Respiratory: Yes: Regular, CTA Bilaterally, Other Gastrointestinal: Yes: Normal Bowel Sounds, Soft Genitourinary: Yes: Anuria. No: Bladder Distention, CVA Tenderness - Left, CVA Tenderness - Right Breast(s): Yes: Right, Other (Bresat Tenderness +) Edema: No Peripheral Pulses: Left Doralis Pedis: 2+, Right Dorsalis Pedis: 2+ Neurological: Yes: Alert, Oriented, Cran Nerves II-XII Intact ...Motor Strength: WNL, LUE, LLE, RUE, RLE Labs: CBC, BMP 11/07/18 09:08 11/07/18 09:08 - ....Imaging Ultrasound: Report Reviewed (RT Breast dense tissue no localised infection) Problem List - Problems (1) Mastitis Assessment/Plan: Symptoms stated after shaving Rt arm pit with erythema extended on breast , possibality of Cellulitis will F/U Rt axillary swab, ID on the case cont Zosyn and vaccomycin f/u pending cultures, cold compresses Motrin PRN and serial CRP Code(s): N61.0 - MASTITIS WITHOUT ABSCESS
--- NOTE | 2018-11-08 10:48 | PN ---
Progress Note, Physician History of Present Illness: Pt seen and examined, events noted. She is alert, afebrile today, no rigors. C/ O Rt breast pain and swelling still, currently 4/10 intensity. No purulent drainage noted. No other complaints. - Current Medication List Current Medications: Active Medications Enoxaparin Sodium (Lovenox -) 40 mg SQ DAILY [facility] Last Admin: 11/08/18 09:26 Dose: 40 mg Sodium Chloride (Normal Saline -) 1,000 mls @ 100 mls/hr IV ASDIR PAULO Last Admin: 11/07/18 15:14 Dose: 100 mls/hr Vancomycin HCl 1,250 mg/ (Dextrose) 250 mls @ 250 mls/2 hr IVPB Q24H [facility]; Protocol Last Admin: 11/08/18 09:34 Dose: 250 mls/2 hr Piperacillin Sod/Tazobactam (Sod 3.375 gm/ Dextrose) 50 mls @ 100 mls/hr IVPB Q8H-IV [facility]; Protocol Last Admin: 11/08/18 09:27 Dose: 100 mls/hr Ibuprofen (Caldolor Injection -) 800 mg IVPB Q8H [facility] Stop: 11/09/18 07:16 Last Admin: 11/08/18 08:45 Dose: 800 mg Ondansetron HCl (Zofran Injection) 4 mg IVPUSH Q6H PRN PRN Reason: NAUSEA AND/OR VOMITING Last Admin: 11/07/18 15:19 Dose: 4 mg Multivit/Folic Acid/Iron ( Vitamins (Sjr) -) 1 tab PO DAILY [facility] Last Admin: 11/08/18 09:34 Dose: 1 tab - Objective Vital Signs: Vital Signs Temperature 97.9 F 11/08/18 06:00 Pulse Rate 69 11/08/18 06:00 Respiratory Rate 16 11/08/18 08:14 Blood Pressure 109/57 L 11/08/18 06:00 O2 Sat by Pulse Oximetry (%) 99 11/08/18 08:14 Constitutional: Yes: No Distress, Calm Eyes: Yes: Conjunctiva Clear HENT: Yes: Atraumatic Neck: Yes: Supple Cardiovascular: Yes: Regular Rate and Rhythm Respiratory: Yes: Regular Gastrointestinal: Yes: Normal Bowel Sounds, Soft Genitourinary: Yes: WNL Breast(s): Yes: Right (Rt breast erythema/mild warmth/TTP, no purulent nipple discharge, no induration) Extremities: Yes: WNL Integumentary: Yes: WNL Neurological: Yes: Alert, Oriented Labs: CBC, BMP 11/07/18 09:08 11/07/18 09:08 Microbiology 11/07/18 09:15 Blood - Peripheral Venous Blood Culture - Preliminary NO GROWTH OBTAINED AFTER 24 HOURS, INCUBATION TO CONTINUE FOR 4 DAYS. 11/07/18 09:00 Blood - Peripheral Venous Blood Culture - Preliminary NO GROWTH OBTAINED AFTER 24 HOURS, INCUBATION TO CONTINUE FOR 4 DAYS. - ....Imaging Ultrasound: Report Reviewed Problem List - Problems (1) Mastitis Code(s): N61.0 - MASTITIS WITHOUT ABSCESS Assessment/Plan -- continue IV antibiotics -- f/u breast culture -- blood cultures neg 24h, US Rt breast no collections noted Pt is now afebrile, continue monitor Continue monitor for improvement
[2018-11-08] MEDS: PSEUDOEPHEDRINE HCL 30 MG TABLET PO PRN ×2 (13:39→18:57)
[2018-11-08] MEDS: SODIUM CHLORIDE 1,000 ML IV SCH (16:21)
[2018-11-08] MEDS ORDERED: VANCOMYCIN 1 GRAM (PRE-DOCKED) 1,000 MG/250 ML BAG IVPB SCH (22:00)
[2018-11-09] MEDS ORDERED: PIPERACILLIN/TAZOBACTAM 3.375 GM VIAL IVPB ONE ×2 (00:59→08:43)
[2018-11-09] MEDS ORDERED: DEXTROSE 5%-WATER - 50 ML IVPB ONE ×2 (00:59→08:43)
[2018-11-09] MEDS: PIPERACILLIN/TAZOB 3.375 GM 3.375 GM in DEXTROSE 5%-WATER - 50 ML IVPB SCH ×2 (01:25→09:15)
[2018-11-09] MEDS: IBUPROFEN 800 MG/8 ML IJ IVPB SCH (06:32)
[2018-11-09] MEDS ORDERED: PT OWN MED DRAWER 7, Y5N ONE (08:42)
[2018-11-09] MEDS: PSEUDOEPHEDRINE HCL 30 MG TABLET PO PRN (08:48)
[2018-11-09] MEDS ORDERED: ACETAMINOPHEN 325 MG TABLET (FP) PO ONE (08:52)
[2018-11-09 08:55] VITALS: BP 133/90; PULSE 61; TEMP 98.2
[2018-11-09] MEDS: ENOXAPARIN NA (PORCINE) 40 MG/0.4 ML DISP.SYRIN SQ SCH (09:13)
[2018-11-09] MEDS: PRENATAL VITAMINS W/ FOLIC ACID TABLET (FP) PO SCH (09:13)
[2018-11-09 09:25] LABS: BASO % 0.3 % (0-2.0); EOS % 2.3 % (0-4.5); HEMATOCRIT 34.5 % (32.4-45.2); HEMOGLOBIN 11.3 GM/dl (10.7-15.3); LYMPH % 22.1 % (8-40); MCH 28.8 pg (25.7-33.7); MCHC 32.8 g/dl (32.0-36.0); MONO % 8.6 % (3.8-10.2); NEUT % 66.7 % (42.8-82.8); PLATELET COUNT 232 K/MM3 (134-434); RBC 3.92 M/mm3 (3.60-5.2); RDW 15.1 % (11.6-15.6); WHITE BLOOD COUNT 7.3 K/mm3 (4.0-10.8)
[2018-11-09 09:38] LABS: CREATININE 0.7 mg/dl (0.55-1.3); POTASSIUM 3.7 mmol/L (3.5-5.1)
[2018-11-09] MEDS: VANCOMYCIN HCL 1,250 MG in DEXTROSE 5%-WATER - 250 ML IVPB SCH (10:30)
--- NOTE | 2018-11-09 11:41 | PN ---
Progress Note, Physician History of Present Illness: Pt remains afebrile. She states the pain in her Rt breast has resolved and she is feeling better. Has no other complaints. - Current Medication List Current Medications: Active Medications Enoxaparin Sodium (Lovenox -) 40 mg SQ DAILY [facility] Last Admin: 11/09/18 09:13 Dose: 40 mg Vancomycin HCl 1,250 mg/ (Dextrose) 250 mls @ 250 mls/2 hr IVPB Q24H [facility]; Protocol Last Admin: 11/08/18 09:34 Dose: 250 mls/2 hr Piperacillin Sod/Tazobactam (Sod 3.375 gm/ Dextrose) 50 mls @ 100 mls/hr IVPB Q8H-IV [facility]; Protocol Last Admin: 11/09/18 09:15 Dose: 100 mls/hr Ondansetron HCl (Zofran Injection) 4 mg IVPUSH Q6H PRN PRN Reason: NAUSEA AND/OR VOMITING Last Admin: 11/07/18 15:19 Dose: 4 mg Multivit/Folic Acid/Iron ( Vitamins (Sjr) -) 1 tab PO DAILY [facility] Last Admin: 11/09/18 09:13 Dose: 1 tab Pseudoephedrine HCl (Sudafed -) 30 mg PO Q6H PRN PRN Reason: FLUSH Last Admin: 11/09/18 08:48 Dose: 30 mg - Objective Vital Signs: Vital Signs Temperature 98.2 F 11/09/18 08:54 Pulse Rate 61 11/09/18 08:54 Respiratory Rate 18 11/09/18 08:54 Blood Pressure 133/90 11/09/18 08:54 O2 Sat by Pulse Oximetry (%) 99 11/09/18 08:54 Constitutional: Yes: No Distress, Calm Cardiovascular: Yes: Regular Rate and Rhythm Respiratory: Yes: Regular Gastrointestinal: Yes: Normal Bowel Sounds, Soft Breast(s): Yes: Right (less erythema/edema, no warmth, no tenderness) Integumentary: Yes: WNL Neurological: Yes: Alert, Oriented Labs: CBC, BMP 11/09/18 09:00 11/09/18 09:00 Microbiology 11/07/18 09:15 Blood - Peripheral Venous Blood Culture - Preliminary NO GROWTH OBTAINED AFTER 48 HOURS, INCUBATION TO CONTINUE FOR 3 DAYS. 11/07/18 09:00 Blood - Peripheral Venous Blood Culture - Preliminary NO GROWTH OBTAINED AFTER 48 HOURS, INCUBATION TO CONTINUE FOR 3 DAYS. 11/07/18 16:30 Breast - Right Gram Stain - Final 11/07/18 16:30 Breast - Right Wound Culture - Preliminary NO GROWTH OBTAINED AFTER 24 HOURS INCUBATION, REINCUBATED. 11/07/18 09:08 Urine - Urine Clean Catch Urine Culture - Final NO GROWTH OBTAINED - ....Imaging Ultrasound: Report Reviewed Problem List - Problems (1) Mastitis Code(s): N61.0 - MASTITIS WITHOUT ABSCESS Assessment/Plan -- clinically improved -- breast fluid culture no growth -- blood cultures neg -- may switch to clindamycin 450 mg po TID x one more week Pt instructed to f/u with PMD to monitor for continued improvement
--- NOTE | 2018-11-09 12:33 | DS ---
Physical Exam: SUBJECTIVE: Patient seen and examined OBJECTIVE: Vital Signs Period Temp Pulse Resp BP Sys/Ocampo Pulse Ox Last 24 Hr 97.8 F-98.6 F 61-88 16-19 100-144/68-90 97-100 PHYSICAL EXAM GENERAL: The patient is awake, alert, and fully oriented, in no acute distress. HEAD: Normal with no signs of trauma. EYES: PERRL, extraocular movements intact, sclera anicteric, conjunctiva clear. ENT: Ears normal, nares patent, oropharynx clear without exudates, moist mucous membranes. NECK: Trachea midline, full range of motion, supple. LUNGS: Breath sounds equal, clear to auscultation bilaterally, no wheezes, no crackles, no accessory muscle use. HEART: Regular rate and rhythm, S1, S2 without murmur, rub or gallop. Breasts ABDOMEN: Soft, nontender, nondistended, normoactive bowel sounds, no guarding, no rebound, no hepatosplenomegaly, no masses. EXTREMITIES: 2+ pulses, warm, well-perfused, no edema. NEUROLOGICAL: Cranial nerves II through XII grossly intact. Normal speech, gait not observed. PSYCH: Normal mood, normal affect. SKIN: Warm, dry, normal turgor, no rashes or lesions noted. LABS Laboratory Results - last 24 hr 11/09/18 11/09/18 11/09/18 09:00 09:00 09:20 WBC 7.3 RBC 3.92 Hgb 11.3 Hct 34.5 MCV 88.0 MCH 28.8 MCHC 32.8 RDW 15.1 Plt Count 232 MPV 9.0 Absolute Neuts (auto) 4.9 Neutrophils % 66.7 Lymphocytes % 22.1 Monocytes % 8.6 Eosinophils % 2.3 Basophils % 0.3 Sodium 141 Potassium 3.7 Chloride 108 H Carbon Dioxide 25 Anion Gap 8 BUN 4.0 L Creatinine 0.7 Est GFR (CKD-EPI)AfAm 133.81 Est GFR (CKD-EPI)NonAf 115.45 Random Glucose 81 Calcium 9.0 C-Reactive Protein 4.2 H Vancomycin Pre-Dose 3.3 L HOSPITAL COURSE: Date of Admission:11/07/18 Date of Discharge: 11/09/18 This is a 33 year-old female, , with a PMH significant for IBS, hyperemesis gravidum, and who had a spontaneous vaginal delivery 7 weeks ago. Patient has been breast feeding. Three weeks ago she developed an area of redness and pain in her right breast. Last week patient was prescribed Flagyl for bacterial vaginosis.Then two days later developed Rt breast redness,warmth, and pain in the right breast. Flagyl was stopped and she was started on dicloxacillin by her OB. There has been no nipple exudate or discharge other than milk. Patient denies vaginal bleeding, discharge, itching or pain. Denies abdominal pain, chest pain, SOB. She had an IUD placed last by her OB/ [employer], who presented to ER with persistent fever,shaking chills, poor PO intake and worsening Rt breast pain/ redness. Admitted with Rt breast mastitis. In ER , found to have T101.4,normal wbc,CRP 4.2. Pt received Zosyn and Vanco with improvement.US negative for abscess or fluid collection, subcm cyst. Pt remains afebrile, Rt breast redness resolved. Cultures breast milk, blood and urine negative. Pt was evaluated by ID, now switched to Clindamycin 450mg TID x 7 more days to complete the course. Minutes to complete discharge: 40 Discharge Summary Reason For Visit: MASTITIS Current Active Problems Mastitis (Acute) Condition: Stable - Instructions Diet, Activity, Other Instructions: For any worsening pain or fever, advised to call [employer]. Clindamycin 450mg three times day for 7 days to complete the course. Referrals: Aurora Jama MD [Non Staff, Medical] - 1 Week Disposition: HOME - Home Medications Comprehensive Discharge Medication List: Ambulatory Orders Acetaminophen [Tylenol] 650 mg PO PRN 11/07/18 Ibuprofen [Motrin -] 400 mg PO PRN 11/07/18 Clindamycin [Cleocin -] 150 mg PO Q8H #21 capsule 11/09/18 Clindamycin [Cleocin -] 300 mg PO TID #21 capsule 11/09/18 Vitamins (Sjr) - 1 tab PO DAILY tablet 11/09/18 Pseudoephedrine HCl [Sudafed -] 30 mg PO Q6H PRN #30 tablet 11/09/18 This patient is new to me today: Yes Date on this admission: 11/09/18 Emergency Visit: Yes ED Registration Date: 11/07/18 Care time: The patient presented to the Emergency Department on the above date and was hospitalized for further evaluation of their emergent condition. Critical Care patient: No - Discharge Referral Referred to [facility] Med P.C.: No
== END 2018-11-09 13:08 | disposition home or self-care (01) | DRG 872 ==
LOC: FER 08:21 → FM/S 11:23 → UNDOADMIN 12:21
PROVIDERS: ADMIT Internal Medicine; ATTEND Nurse Practitioner Family
DX: A41.9 Sepsis, unspecified organism (principal); N61.0 Mastitis without abscess; K58.9 Irritable bowel syndrome, unspecified
CPT/HCPCS: 36415; 71045-TC-FY; 76642-TC-RT; 80048; 80053; 81003; 81015; 83605; 84703; 85025; 86140; 87040; 87070; 87086; 87205; 99283-25; G0480; J7030

== ENCOUNTER 2022-10-18 06:40 | Day surgery (SDC) | payer SELFPAY ==
[2022-10-12 15:39] VITALS: BMI 23.6
[2022-10-18] MEDS ORDERED: VANCOMYCIN 1,000 MG VIAL (RESTRICTED TO ID ONLY) ONE (07:13)
[2022-10-18] MEDS ORDERED: ceFAZolin SODIUM 1 GM VIAL ONE (07:13)
[2022-10-18] MEDS ORDERED: GUM MASTIC/STORAX/MSAL/ALCOHOL 1 DRP DROPSBTL MC ONE (07:14)
[2022-10-18] MEDS ORDERED: BUPIVACAINE HCL/EPINEPHRINE/PF 30 ML VIAL IJ ONE (07:14)
[2022-10-18] MEDS ORDERED: GENTAMICIN SO4 80 MG/2 ML VIAL ONE (07:14)
[2022-10-18] MEDS ORDERED: MIDAZOLAM HCL 2 MG/2 ML SINGLE DOSE VIAL ONE ×2 (07:23→09:30)
[2022-10-18] MEDS ORDERED: PROPOFOL 40 ML ONE ×2 (07:23→10:41)
[2022-10-18] MEDS ORDERED: SUCCINYLCHOLINE CHLORIDE 200 MG/10 ML SYRINGE ONE (07:23)
[2022-10-18] MEDS ORDERED: ROCURONIUM BROMIDE 50 MG/5 ML SYRINGE ONE ×2 (07:24→09:29)
[2022-10-18] MEDS ORDERED: EPINEPHrine/PF 1 MG/1 ML (1:1,000) AMPULE ONE ×3 (07:31→09:09)
[2022-10-18] MEDS ORDERED: ACETAMINOPHEN INJECTION 100 ML IVPB ONE (07:31)
[2022-10-18] MEDS ORDERED: LIDOCAINE HCL 2% (20ML MULTI-DOSE VIAL) ONE ×2 (07:32→09:09)
[2022-10-18] MEDS ORDERED: PROPOFOL 60 ML ONE ×2 (07:46→09:34)
[2022-10-18] MEDS ORDERED: HYDROmorphone HCL/PF 1 MG/ML VIAL ONE (08:01)
[2022-10-18] MEDS ORDERED: PROPOFOL 20 ML ONE ×3 (09:15→10:37)
[2022-10-18] MEDS ORDERED: NEOSTIGMINE METHYLSULFATE 0.5 MG/1 ML - 10 ML MDV ONE (10:39)
[2022-10-18] MEDS ORDERED: SUGAMMADEX SODIUM 200 MG/2 ML VIAL ONE (10:49)
[2022-10-18] MEDS ORDERED: oxyCODONE HCL 5 MG TABLET PO PRN (11:19)
[2022-10-18] MEDS ORDERED: ONDANSETRON 4 MG/2 ML VIAL IVPUSH PRN ×2 (11:19→11:25)
[2022-10-18] MEDS ORDERED: ACETAMINOPHEN 325 MG TABLET (FP) PO PRN (11:25)
[2022-10-18] MEDS ORDERED: LACTATED RINGERS SOLUTION 1,000 ML IV SCH ×2 (11:30)
[2022-10-18 12:46] VITALS: RESP 16; TEMP 96.5
[2022-10-18 13:59] VITALS: BP 129/51; PULSE 76
== END 2022-10-18 13:50 | disposition home or self-care (01) ==
LOC: FASU 06:40
PROVIDERS: ATTEND Plastic Surgery
CPT/HCPCS: 81025; 94760

== ENCOUNTER 2024-10-07 09:30 | Emergency (ER) | payer OTHER ==
[2024-10-07] MEDS ORDERED: IBUPROFEN 600 MG TABLET (FP) PO ONE (10:26)
[2024-10-07] MEDS: IBUPROFEN 600 MG TABLET (FP) PO ONE (10:27)
[2024-10-07 11:21] VITALS: BP 110/79; PULSE 83; RESP 16; TEMP 98.2; BMI 23.0
== END 2024-10-07 11:52 | disposition home or self-care (01) ==
LOC: FER 09:30
DX: N61.0 Mastitis without abscess (principal); N64.4 Mastodynia; L29.9 Pruritus, unspecified; T63.441A Toxic effect of venom of bees, accidental (unintentional), initial encounter
CPT/HCPCS: 76641-TC-RT; 99284-25